=== PATIENT | male | born 1990 | race Hispanic/Latino ===

== ENCOUNTER 2020-05-29 13:44 | Emergency (ER) | payer BC, OTHER ==
[2020-05-30 12:19] LABS: SARS-CoV-2 MS2 Positive; SARS-CoV-2 N Gene Positive; SARS-CoV-2 S Gene Positive; SARS-CoV-2 orf1ab Positive
== END 2020-05-29 14:07 | disposition home or self-care (01) ==
LOC: ERS 13:44
DX: U07.1 COVID-19 (principal)
CPT/HCPCS: 87635; 99284; U0003